=== PATIENT | female | born 1975 | race African-American/Black ===

== ENCOUNTER 2016-12-11 12:02 | Emergency (ER) | payer OTHER ==
[~2016-12-11] VITALS: Ht 160 cm; Wt 90.7 kg
[~2016-12-11 12:02] MED LIST: ALPRAZOLAM0.5 MG PO; Albuterol; CLOTRIMAZOLE VA21 GM VAGIN; CYCLOBENZAPRINE10 MG ORAL; FLUCONAZOLE100 MG ORAL; FLUCONAZOLE150 MG ORAL; HYDROCODON-ACE1 EA16 ORAL; IBUPROFEN600 MG ORAL; IBUPROFEN800 MG ORAL; NAPROSYN500 M1 ORAL; NKM; NORCO 5-325 TA1 EACH ORAL; NORCO 5-325 TA1 EACH PO; PREDNISONE50 MG ORAL; ROBAXIN-750750 MG PO; XANAX0.5 MG ORAL; flovent
[2016-12-11 12:29] VITALS: BP 136/84
--- NOTE | 2016-12-11 12:39 | Emergency Room Report ---
History of Present Illness General Chief Complaint: Vaginal Source: Patient Present Illness HPI The patient is a 41-year-old female presenting with lower back pain and vaginal discharge. She states that she has a history of sciatica and has had lower back pain for the past month. Pain radiates down the right leg. Worse with movement. This is described as an 8/10 sharp sensation. She is also complaining of a thick white vaginal discharge which started 3 days prior. She also admits to itching and pain to the vaginal area. Described as 7 /10 dull ache and does not radiate. 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 ,HYATIAL HERNIA , GALLSTONES Review of Systems All Other Systems: negative except mentioned in HPI Physical Exam Vital Signs Date Time Temp Pulse Resp B/P Pulse Ox O2 Delivery O2 Flow Rate FiO2 12/11/16 12:21 98.1 76 18 136/84 100 Room Air Sp02 EP Interpretation: reviewed, normal General Appearance: no apparent distress, alert, GCS 15, non-toxic Head: normocephalic, atraumatic Eyes: bilateral eye PERRL, bilateral eye normal inspection ENT: hearing grossly normal, normal pharynx, no angioedema, normal voice Neck: full range of motion, supple/symm/no masses Gastrointestinal: normal bowel sounds, non tender, soft, non-distended, no guarding, no rebound Genitourinary: normal inspection, no CVA tenderness Musculoskeletal: back normal, gait/station normal, normal range of motion, tender - TTP over the R lumbar paraspinal muscles Neurologic: alert, oriented x3, responsive, motor strength/tone normal, sensory intact, speech normal Psychiatric: judgement/insight normal, memory normal, mood/affect normal, no suicidal/homicidal ideation Skin: normal color, no rash, warm/dry, well hydrated Medical Decision Making PA Attestation Dr. Green is my supervising physician. Patient management was discussed with my supervising physician Diagnostic Impression: Primary Impression: UTI (urinary tract infection) Qualified Codes: N39.0 - Urinary tract infection, site not specified Additional Impression: Yeast infection ER Course The patient is a 41-year-old female presenting with sciatica and vaginal discharge Ddx considered include but not limited to lumbar strain, degenerative disease, epidural abscess, cauda equina, pyelonephritis, UTI, STD, vaginal candidiasis, BV, among others PE: afebrile. NAD Abdomen is soft and nontender. There is tenderness to palpation over the right lumbar paraspinal muscles. No midline tenderness. Normal gait. Urinalysis: shows bacteria with WBCs She is given Motrin and Robaxin for pain She is treated with Diflucan in the ER and will be SC'ed home with prescription for keflex and pain medication Laboratory Tests Test 12/11/16 12:23 Urine Color Pale yellow Urine Appearance Slightly cloudy Urine pH 5 (4.5-8.0) Urine Specific [place] 1.020 (1.005-1.035) Urine Protein Negative (NEGATIVE) Urine Glucose (UA) Negative (NEGATIVE) Urine Ketones Negative (NEGATIVE) Urine Occult Blood 4+ (NEGATIVE) H Urine Nitrite Negative (NEGATIVE) Urine Bilirubin Negative (NEGATIVE) Urine Urobilinogen Normal MG/DL (0.0-1.0) Urine Leukocyte Esterase 3+ (NEGATIVE) H Urine RBC 2-4 /HPF (0 - 2) H Urine WBC 5-10 /HPF (0 - 2) H Urine Squamous Epithelial Cells Moderate /LPF (NONE/OCC) H Urine Bacteria Moderate /HPF (NONE) H Urine HCG, Qualitative Negative Lab Results Impression UA: + bacteria and WBCs Last Vital Signs Date Time Temp Pulse Resp B/P Pulse Ox O2 Delivery O2 Flow Rate FiO2 12/11/16 12:29 98.1 76 18 136/84 100 Room Air Status: improved Disposition: HOME, SELF-CARE Condition: Improved Scripts Nitrofurantoin Monohyd/M-Cryst* (MACROBID 100 MG*) 100 Mg Capsule 100 MG ORAL EVERY 12 HOURS, #14 CAP Prov: TERZIAN,EDIE P.A. 12/11/16 Methocarbamol* (ROBAXIN-750*) 750 Mg Tablet 750 MG PO TID, #21 TAB 0 Refills Prov: TERZIAN,EDIE P.A. 12/11/16 Ibuprofen* (MOTRIN*) 600 Mg Tablet 600 MG ORAL Q8H Y for For Pain, #30 TAB 0 Refills Prov: EDIE KILLIAN 12/11/16 EDIE KILLIAN Dec 11, 2016 12:39
[2016-12-11] MEDS ORDERED: Methocarbamol 750mg tab ORAL ONE (12:45)
[2016-12-11 12:48] LABS: APPEARANCE,URINE SLIGHTLY CLOUDY; KETONES,URINE NEGATIVE (NEGATIVE); LEUKOCYTE ESTERASE ,URINE 3+ (NEGATIVE); NITRITE,URINE NEGATIVE (NEGATIVE); PH,URINE 5 (4.5-8.0); PROTEIN,URINE NEGATIVE (NEGATIVE); UROBILINOGEN,URINE NORMAL MG/DL (0.0-1.0)
[2016-12-11 12:59] LABS: BACTERIA,URINE MODERATE /HPF; SQUAMOUS EPITHELIAL CELL,UR MODERATE /LPF (NONE/OCC)
[2016-12-11] MEDS ORDERED: Fluconazole 100mg tab ORAL ONE (13:15)
[2016-12-11] MEDS ORDERED: IBUPROFEN600 MG ORAL (13:19)
[2016-12-11] MEDS ORDERED: NITROFURANTOIN100 M2 ORAL (13:19)
[2016-12-11] MEDS ORDERED: ROBAXIN-750750 MG PO (13:19)
[2016-12-11 13:27] VITALS: BP 136/84
== END 2016-12-11 13:27 | disposition home or self-care (01) ==
LOC: EMR 12:20
DX: N39.0 Urinary tract infection, site not specified (principal); B37.9 Candidiasis, unspecified; M54.30 Sciatica, unspecified side
CPT/HCPCS: 81003; 81025; 87086; 99284

== ENCOUNTER 2017-01-24 09:30 | Emergency (ER) | payer MEDICAID, OTHER ==
[~2017-01-24] VITALS: Ht 160 cm; Wt 90.7 kg
[~2017-01-24 09:30] MED LIST changes: +NITROFURANTOIN100 M2 ORAL
[2017-01-24] MEDS ORDERED: ALBUTEROL SULF8.5 GM INH (09:40)
[2017-01-24 09:44] VITALS: BP 118/74
[2017-01-24] MEDS ORDERED: Fluconazole 100mg tab ORAL ONE (10:00)
[2017-01-24] MEDS ORDERED: BENADRYL ALLERG25 M1 PO (10:08)
[2017-01-24 10:09] LABS: APPEARANCE,URINE CLEAR; KETONES,URINE NEGATIVE (NEGATIVE); LEUKOCYTE ESTERASE ,URINE 2+ (NEGATIVE); NITRITE,URINE NEGATIVE (NEGATIVE); PH,URINE 6 (4.5-8.0); PROTEIN,URINE NEGATIVE (NEGATIVE); UROBILINOGEN,URINE NORMAL MG/DL (0.0-1.0)
[2017-01-24 10:13] LABS: BACTERIA,URINE OCCASIONAL /HPF; RBC,URINE 0-2 /HPF (0 - 2); SQUAMOUS EPITHELIAL CELL,UR OCCASIONAL /LPF (NONE/OCC); WBC,URINE 0-2 /HPF (0 - 2)
[2017-01-24 10:29] VITALS: BP 118/74
--- NOTE | 2017-01-24 10:29 | Emergency Room Report ---
History of Present Illness General Chief Complaint: Female Urogenital Problems Source: Patient Present Illness HPI 41-year-old female presenting with vaginal itching for 3 days. Patient states minimal white vaginal discharge. Patient states that vaginal itching started about 3 days ago when she started using a new soap that contained honey. States that she had a UTI and a yeast infection a few weeks ago and completed treatment. Patient states that she is sexually active with one female partner, had been tested for STDs 1 month ago which was negative Denies any fever chills nausea vomiting abdominal pain dysuria or hematuria Allergies: Coded Allergies: No Known Allergies (Unverified , 04/26/13) Patient History Past Medical History: see triage record Past Surgical History: none Pertinent Family History: none Last Menstrual Period: Three weeks ago Now: No Reviewed Nursing Documentation: PMH: Agreed, PSxH: Agreed Nursing Documentation-PMH Hx Asthma: Yes Review of Systems All Other Systems: negative except mentioned in HPI Physical Exam Vital Signs Date Time Temp Pulse Resp B/P (MAP) Pulse Ox O2 Delivery O2 Flow Rate FiO2 01/24/17 09:35 97.9 93 16 114/78 100 Room Air Sp02 EP Interpretation: reviewed, normal General Appearance: normal inspection, well appearing, no apparent distress, alert, GCS 15, non-toxic Head: normocephalic, atraumatic Eyes: bilateral eye normal inspection, bilateral eye PERRL, bilateral eye EOMI ENT: normal ENT inspection, normal pharynx, normal voice, moist mucus membranes Neck: normal inspection, full range of motion, supple Respiratory: normal inspection, lungs clear, normal breath sounds, no respiratory distress, no retraction, no wheezing, speaking full sentences, chest symmetrical Cardiovascular #1: normal inspection, regular rate, rhythm, no edema, normal capillary refill Cardiovascular #2: 2+ radial (R), 2+ radial (L) Gastrointestinal: normal inspection, non tender, soft, non-distended, no guarding Genitourinary: other - Bilateral vaginal labia appears erythematous, irritated , no vesicles, white thick vaginal discharge Musculoskeletal: normal inspection, back normal, normal range of motion, non- tender Neurologic: normal inspection, alert, oriented x3, responsive, motor strength/ tone normal, sensory intact, normal gait, speech normal Psychiatric: normal inspection, judgement/insight normal, memory normal Skin: normal inspection, normal color, no rash, warm/dry, well hydrated, normal turgor Medical Decision Making Diagnostic Impression: Primary Impression: Yeast infection ER Course 41-year-old female with vaginal itching for 3 days DDX: Likely yeast infection Rule out UTI Plan: UA, will treat for yeast infection ER course: Patient has remained stable during ED stay. Disposition: Patient is to be discharged to home. Prescriptions given are Benadryl Patient is instructed to follow up with their primary care doctor within 5 days. Patient is instructed to follow up with [facility] within 3 days. Strict return precautions discussed with patient such as fever, chills, worsening/severe pain, nausea, vomiting, which may indicate severe illness. Patient verbalizes understanding and agrees with plan. Please note that this Emergency Department Report was dictated using [employer] technology software, occasionally this can lead to erroneous entry secondary to interpretation by the dictation equipment Laboratory Tests Test 01/24/17 09:44 01/24/17 09:45 Urine Color Pale yellow Urine Appearance Clear Urine pH 6 (4.5-8.0) Urine Specific [place] 1.010 (1.005-1.035) Urine Protein Negative (NEGATIVE) Urine Glucose (UA) Negative (NEGATIVE) Urine Ketones Negative (NEGATIVE) Urine Occult Blood Negative (NEGATIVE) Urine Nitrite Negative (NEGATIVE) Urine Bilirubin Negative (NEGATIVE) Urine Urobilinogen Normal MG/DL (0.0-1.0) Urine Leukocyte Esterase 2+ (NEGATIVE) H Urine RBC 0-2 /HPF (0 - 2) Urine WBC 0-2 /HPF (0 - 2) Urine Squamous Epithelial Cells Occasional /LPF Urine Bacteria Occasional /HPF (NONE) Urine HCG, Qualitative Negative Chlamydia trachomatis RNA Pending Neisseria gonorrhoeae RNA Pending Last Vital Signs Date Time Temp Pulse Resp B/P (MAP) Pulse Ox O2 Delivery O2 Flow Rate FiO2 01/24/17 09:44 97.8 91 15 118/74 100 Room Air Disposition: HOME, SELF-CARE Condition: Improved Scripts Diphenhydramine Hcl (BENADRYL ALLERGY) 25 Mg Tablet 25 MG PO Q6H for 7 Days, #28 TAB 0 Refills Prov: Clarisa Duncan M.D. 01/24/17 Referrals: NON PHYSICIAN (PCP) Patient Instructions: Vaginal Yeast Infection, Adult Clarisa Duncan M.D. Jan 24, 2017 10:29
== END 2017-01-24 10:31 | disposition home or self-care (01) ==
LOC: EMR 10:12
DX: B37.9 Candidiasis, unspecified (principal)
CPT/HCPCS: 81003; 81025; 87491; 87590; 99284

== ENCOUNTER 2017-02-17 20:22 | Emergency (ER) | payer MEDICAID ==
[~2017-02-17] VITALS: Ht 160 cm; Wt 88.5 kg
[~2017-02-17 20:22] MED LIST changes: +ALBUTEROL SULF8.5 GM INH; +BENADRYL ALLERG25 M1 PO
[2017-02-17] MEDS ORDERED: NKM (20:41)
[2017-02-17 21:20] VITALS: BP 142/80
[2017-02-17] MEDS ORDERED: Ketorolac 60mg Inj IM ONE (21:30)
[2017-02-17 21:58] LABS: KETONES,URINE 1+ (NEGATIVE); LEUKOCYTE ESTERASE ,URINE 1+ (NEGATIVE); NITRITE,URINE NEGATIVE (NEGATIVE); PH,URINE 5 (4.5-8.0); PROTEIN,URINE NEGATIVE (NEGATIVE); UROBILINOGEN,URINE 1 MG/DL (0.0-1.0)
[2017-02-17 22:09] LABS: APPEARANCE,URINE CLEAR
[2017-02-17 22:16] LABS: BACTERIA,URINE FEW /HPF; RBC,URINE 0-2 /HPF (0 - 2); SQUAMOUS EPITHELIAL CELL,UR FEW /LPF (NONE/OCC)
[2017-02-17] MEDS ORDERED: METROGEL-VAGINA70 G1 VAGIN (22:40)
[2017-02-17] MEDS ORDERED: BENADRYL25 MG ORAL (22:40)
[2017-02-17 23:01] VITALS: BP 128/72
[2017-02-17] MEDS ORDERED: IBUPROFEN600 MG ORAL (23:07)
[2017-02-17 23:13] VITALS: BP 128/72
--- NOTE | 2017-02-20 06:41 | Emergency Room Report ---
History of Present Illness General Chief Complaint: Abdominal Pain Source: Patient Present Illness HPI Patient present with complaints of suprapubic discomfort Possibly bladder infection patient also reports that she has another yeast infection with increased itching in the vaginal area Denies any pain Denies any fevers denies any chest pressures of breath Denies any urinary frequency however she had some dysuria Patient reports that she's not sexually active at this time Denies any flank pain Allergies: Coded Allergies: No Known Allergies (Unverified , 04/26/13) Patient History Past Medical History: see triage record Pertinent Family History: none Last Menstrual Period: 2 weeks ago : 2 Reviewed Nursing Documentation: PMH: Agreed, PSxH: Agreed Nursing Documentation-PMH Hx Asthma: Yes Review of Systems All Other Systems: negative except mentioned in HPI Physical Exam Vital Signs Date Time Temp Pulse Resp B/P (MAP) Pulse Ox O2 Delivery O2 Flow Rate FiO2 02/17/17 20:37 98.2 80 18 142/80 98 Room Air Sp02 EP Interpretation: reviewed, normal General Appearance: well appearing, no apparent distress Head: normocephalic, atraumatic Eyes: bilateral eye PERRL, bilateral eye EOMI ENT: hearing grossly normal, normal pharynx, TMs + canals normal, uvula midline Neck: full range of motion, supple, no meningismus, no bony tend Respiratory: lungs clear, normal breath sounds, no rhonchi, no respiratory distress, no retraction, no accessory muscle use Cardiovascular #1: normal peripheral pulses, regular rate, rhythm, no edema, no gallop, no JVD, no murmur Gastrointestinal: normal bowel sounds, non tender, soft, no mass, no organomegaly, non-distended, no guarding, no hernia, no pulsatile mass, no rebound Genitourinary: no CVA tenderness Musculoskeletal: normal inspection Neurologic: oriented x3, responsive, asbestos worker III-XII nml as tested, motor strength/ tone normal, sensory intact Psychiatric: mood/affect normal Skin: normal color, no rash, warm/dry, palpation normal Lymphatic: normal inspection, no adenopathy Medical Decision Making Diagnostic Impression: Primary Impression: vaginitis ER Course With the patient's history and examination, multiple differentials considered, including but not limited to , ectopic , ovarian torsion, gastritis, cholecystitis, pancreatitis, appendicitis Given the clinical history however on the abdominal examination My differential for appendicitis is low Patient's urine sample is essentially negative At this time patient was treated for clinical yeast infection and requires close followup with gynecology Labs Test 02/17/17 21:22 Urine Color Yellow Urine Appearance Clear Urine pH 5 (4.5-8.0) Urine Specific [place] 1.025 (1.005-1.035) Urine Protein Negative (NEGATIVE) Urine Glucose (UA) Negative (NEGATIVE) Urine Ketones 1+ (NEGATIVE) Urine Occult Blood Negative (NEGATIVE) Urine Nitrite Negative (NEGATIVE) Urine Bilirubin Negative (NEGATIVE) Urine Urobilinogen 1 MG/DL (0.0-1.0) Urine Leukocyte Esterase 1+ (NEGATIVE) Urine RBC 0-2 /HPF (0 - 2) Urine WBC 2-4 /HPF (0 - 2) Urine Squamous Epithelial Cells Few /LPF (NONE/OCC) Urine Bacteria Few /HPF (NONE) Urine HCG, Qualitative Negative Last Vital Signs Date Time Temp Pulse Resp B/P (MAP) Pulse Ox O2 Delivery O2 Flow Rate FiO2 02/17/17 23:13 98.2 60 14 128/72 100 Room Air Status: improved Disposition: HOME, SELF-CARE Condition: Improved Scripts Ibuprofen* (MOTRIN*) 600 Mg Tablet 600 MG ORAL Q8H Y for For Pain, #30 TAB 0 Refills Prov: JENNIFER RIVER D.O. 02/17/17 Diphenhydramine Hcl* (BENADRYL*) 25 Mg Capsule 25 MG ORAL Q6H Y for Itching for 5 Days, CAP Prov: JENNIFER RIVER D.O. 02/17/17 Metronidazole* (METROGEL-VAGINAL*) 70 Gm Gel.w.appl 1 APPL VAGIN EVERY 12 HOURS for 7 Days, #70 GM Prov: JENNIFER RIVER D.O. 02/17/17 Referrals: NON PHYSICIAN (PCP) Patient Instructions: Vaginitis, [id number] Additional Instructions: Patient is provided with the discharge instructions notified to follow up with primary doctor in the next 2-3 days otherwise return to the er with any worsening symptoms. Please note that this report is being documented using [employer] technology. This can lead to erroneous entry secondary to incorrect interpretation by the dictating instrument. JENNIFER RIVER D.O. Feb 20, 2017 06:41
== END 2017-02-17 23:13 | disposition home or self-care (01) ==
LOC: EMR 20:59
DX: N76.0 Acute vaginitis (principal); R10.9 Unspecified abdominal pain
CPT/HCPCS: 81003; 81025; 96372; 99284

== ENCOUNTER 2017-06-28 09:56 | Emergency (ER) | payer MEDICAID ==
[~2017-06-28] VITALS: Ht 160 cm; Wt 91.2 kg
[~2017-06-28 09:56] MED LIST changes: +BENADRYL25 MG ORAL; +METROGEL-VAGINA70 G1 VAGIN
[2017-06-28] MEDS ORDERED: ROBAXIN-750750 MG PO (10:36)
[2017-06-28 10:41] LABS: APPEARANCE,URINE TURBID; BILIRUBIN, URINE NEGATIVE (NEGATIVE); COLOR,URINE PALE YELLOW; GLUCOSE, URINE (UA) NEGATIVE (NEGATIVE); KETONES,URINE NEGATIVE (NEGATIVE); LEUKOCYTE ESTERASE ,URINE 2+ (NEGATIVE); NITRITE,URINE NEGATIVE (NEGATIVE); PH,URINE 8 (4.5-8.0); PROTEIN,URINE NEGATIVE (NEGATIVE); UROBILINOGEN,URINE NORMAL MG/DL (0.0-1.0)
[2017-06-28] MEDS ORDERED: Methocarbamol 750mg tab ORAL ONE (10:45)
[2017-06-28] MEDS ORDERED: Fluconazole 100mg tab ORAL ONE (10:45)
[2017-06-28] MEDS ORDERED: Ketorolac 30mg Inj IM ONE (10:45)
[2017-06-28 10:53] VITALS: BP 147/99
--- NOTE | 2017-06-28 13:04 | Emergency Room Report ---
History of Present Illness General Chief Complaint: Vaginal Source: Patient Present Illness HPI 41-year-old female, presenting with one week of thick vaginal itching discharge. States that it has been uncomfortable. Denies any urinary frequency or urgency. No risk of having any STDs Also states that she has had chronic back pain, right side radiating down leg. States that she takes Flexeril to go to work sometimes No urinary retention, no fever no chills Allergies: Coded Allergies: No Known Allergies (Unverified , 04/26/13) Patient History Past Medical History: see triage record Past Surgical History: none Pertinent Family History: none Last Menstrual Period: 06/25/17 Reviewed Nursing Documentation: PMH: Agreed, PSxH: Agreed Nursing Documentation-PMH Hx Asthma: Yes Review of Systems All Other Systems: negative except mentioned in HPI Physical Exam Vital Signs Date Time Temp Pulse Resp B/P (MAP) Pulse Ox O2 Delivery O2 Flow Rate FiO2 06/28/17 09:59 97.7 90 19 147/99 99 Room Air 97.7 Sp02 EP Interpretation: reviewed, normal General Appearance: normal inspection, well appearing, no apparent distress, alert, GCS 15, non-toxic Head: normocephalic, atraumatic Eyes: bilateral eye normal inspection, bilateral eye PERRL, bilateral eye EOMI ENT: normal ENT inspection, normal pharynx, normal voice, moist mucus membranes Neck: normal inspection, full range of motion, supple Respiratory: normal inspection, lungs clear, normal breath sounds, no respiratory distress, no retraction, no wheezing, speaking full sentences, chest symmetrical Cardiovascular #1: normal inspection, regular rate, rhythm, no edema, normal capillary refill Cardiovascular #2: 2+ radial (R), 2+ radial (L) Gastrointestinal: normal inspection, non tender, soft, non-distended, no guarding Genitourinary: other - Labia majora, red, white vaginal discharge, thick Musculoskeletal: normal inspection, back normal, normal range of motion, non- tender Neurologic: normal inspection, alert, oriented x3, responsive, motor strength/ tone normal, sensory intact, normal gait, speech normal Psychiatric: normal inspection, judgement/insight normal, memory normal Skin: normal inspection, normal color, no rash, warm/dry, well hydrated, normal turgor Medical Decision Making Diagnostic Impression: Primary Impression: Yeast infection Additional Impression: back pain with sciatica ER Course 41-year-old female with vaginal discharge, also with chronic back pain DDX: Vaginal discharge likely yeast infection, rule out UTI Chronic back pain likely sciatica, musculoskeletal back pain. No neurological signs or symptoms to suggest cord compression, cauda equina, epidural abscess Plan: UA urine culture, pain control ER course: Patient has remained stable during ED stay. Feels much better Given fluconazole Disposition: Patient is to be discharged to home. Prescriptions given are Robaxin Patient is instructed to follow up with their primary care doctor within 5 days. Strict return precautions discussed with patient such as fever, chills, worsening/severe pain, nausea, vomiting, which may indicate severe illness. Patient verbalizes understanding and agrees with plan. Please note that this Emergency Department Report was dictated using [employer] technology software, occasionally this can lead to erroneous entry secondary to interpretation by the dictation equipment Last Vital Signs Date Time Temp Pulse Resp B/P (MAP) Pulse Ox O2 Delivery O2 Flow Rate FiO2 06/28/17 10:53 207.9 19 147/99 99 Room Air 207.9 06/28/17 09:59 90 Disposition: HOME, SELF-CARE Condition: Improved Scripts Methocarbamol* (ROBAXIN-750*) 750 Mg Tablet 750 MG PO QID, #28 TAB 0 Refills Prov: Clarisa Duncan M.D. 06/28/17 Referrals: NON PHYSICIAN (PCP) Patient Instructions: Vaginal Yeast Infection, Adult, Back Pain, Adult, Easy-to -Read Additional Instructions: Please followup with your doctor in one week. You may need physical therapy Clarisa Duncan M.D. Jun 28, 2017 13:04
== END 2017-06-28 10:53 | disposition home or self-care (01) ==
LOC: EMR 10:15
DX: B37.3 Candidiasis of vulva and vagina (principal); M54.9 Dorsalgia, unspecified; M54.31 Sciatica, right side; G89.29 Other chronic pain; J45.909 Unspecified asthma, uncomplicated
CPT/HCPCS: 81003; 81025; 87086; 99283; J1885

== ENCOUNTER 2018-11-10 15:21 | Emergency (ER) | payer MEDICAID ==
[~2018-11-10] VITALS: Ht 161.3 cm; Wt 83.5 kg
--- NOTE | 2018-11-10 15:30 | NUR ---
ED Nurse Note: Pt has been experiencing itchiness and white discharge x 1 week. AOx4, VSS carolyne. Will cont to monitor.
[2018-11-10 15:31] VITALS: BP 149/95
--- NOTE | 2018-11-10 16:05 | NUR ---
ED Nurse Note: Pt stated she cannot give urine sample at this time but will try again after drinking water.
--- NOTE | 2018-11-10 16:09 | Emergency Room Report ---
History of Present Illness General Chief Complaint: Vaginal Source: Medical Record Present Illness HPI 42-year-old female with no symptom past medical history complaining of 1 week of white clumpy vaginal discharge as well as vaginal pruritus. Patient also complains of minimal burning burning sensation post scratching her vaginal area. Denies dysuria urinary frequency. Patient is not sexually active. Last menstrual period was 2 weeks ago regular. Denies fever and chills, nausea vomiting, abdominal pain, chest pain, shortness of breath, and all other associated symptoms. Has not been taking any medication for symptom relief. Allergies: Coded Allergies: No Known Allergies (Unverified , 04/26/13) Patient History Past Medical History: see triage record Past Surgical History: unable to obtain Pertinent Family History: none Last Menstrual Period: 11/05/18 Now: No Immunizations: UTD Reviewed Nursing Documentation: PMH: Agreed; PSxH: Agreed Nursing Documentation-PMH Past Medical History: No History, Except For Hx Asthma: Yes Review of Systems All Other Systems: negative except mentioned in HPI Physical Exam Vital Signs Date Time Temp Pulse Resp B/P (MAP) Pulse Ox O2 Delivery O2 Flow Rate FiO2 11/10/18 15:26 97.9 82 18 157/96 (116) 100 Room Air Sp02 EP Interpretation: reviewed, normal General Appearance: normal inspection, well appearing Head: normocephalic, atraumatic Eyes: bilateral eye normal inspection, bilateral eye PERRL ENT: normal ENT inspection, hearing grossly normal, no angioedema Neck: normal inspection, full range of motion, supple Respiratory: normal inspection, chest non-tender, lungs clear, normal breath sounds, no rhonchi Cardiovascular #1: normal inspection, normal peripheral pulses, regular rate, rhythm, no gallop, no murmur Gastrointestinal: normal inspection, non tender, soft Genitourinary: no CVA tenderness, other - No vaginal trauma, no vaginal erythema Musculoskeletal: normal inspection, back normal Neurologic: normal inspection, alert, oriented x3 Psychiatric: normal inspection, judgement/insight normal Skin: no rash Lymphatic: normal inspection, no adenopathy Medical Decision Making PA Attestation All my diagnosis and treatment plans were reviewed ad discussed with my supervising physician Dr. Crowley Diagnostic Impression: Primary Impression: Vaginitis ER Course 42-year-old female with no symptom past medical history complaining of 1 week of white clumpy vaginal discharge as well as vaginal pruritus. Patient also complains of minimal burning burning sensation post scratching her vaginal area. Denies dysuria urinary frequency. Patient is not sexually active. Last menstrual period was 2 weeks ago regular. Denies fever and chills, nausea vomiting, abdominal pain, chest pain, shortness of breath, and all other associated symptoms. Has not been taking any medication for symptom relief. Ddx considered but are not limited to: UTI, pylonephritis, urinary incontinence , prolapsed bladder, vaginitis Vital signs: are WNL, pt. is afebrile H&PE are most consistent with: Vaginitis ORDERS: UA, Diflucan, Lotrisone cream ED INTERVENTIONS: None required at this time. DISCHARGE: At this time pt. is stable for d/c to home. Will provide printed patient care instructions, and any necessary prescriptions. Care plan and follow up instructions have been discussed with the patient prior to discharge. Wear cotton only underwear follow-up with your primary care provider avoid wearing tight clothing avoid moist areas Last Vital Signs Date Time Temp Pulse Resp B/P (MAP) Pulse Ox O2 Delivery O2 Flow Rate FiO2 11/10/18 15:31 97.9 84 20 149/95 100 Room Air Disposition: HOME, SELF-CARE Condition: Stable Scripts Diphenhydramine HCl (Benadryl) 25 Mg Capsule 25 MG PO BID, #20 CAP Prov: Astrid Tse 11/10/18 Clotrimazole/Betamethasone Dip* (LOTRISONE CREAM*) 15 Gm Cream..g. 2 GM TP TWICE A DAY, #15 GM 0 Refills Prov: Astrid Tse 11/10/18 Fluconazole (FLUCONAZOLE) 100 Mg Tablet 100 MG ORAL DAILY for 2 Days, #2 TAB 0 Refills Prov: sAtrid Tse 11/10/18 Patient Instructions: Vaginitis, [id number] Astrid Tse Nov 10, 2018 16:09
[2018-11-10] MEDS ORDERED: LOTRISONE CREAM15 GM TP (16:11)
[2018-11-10] MEDS ORDERED: FLUCONAZOLE100 MG ORAL (16:11)
[2018-11-10] MEDS ORDERED: BENADRYL25 M3 PO (16:11)
[2018-11-10 16:17] VITALS: BP 149/95
--- NOTE | 2018-11-10 16:17 | NUR ---
ER DISCHARGE NOTE: Patient is cleared to be discharged per ERMD, pt is aox4, on room air, with stable vital signs. pt was given dc and prescription instructions, pt was able to verbalize understanding, pt id band removed. pt is able to ambulate with steady gait. pt took all belongings.
== END 2018-11-10 16:17 | disposition home or self-care (01) ==
LOC: EMR 16:04
DX: N76.0 Acute vaginitis (principal); J45.909 Unspecified asthma, uncomplicated
CPT/HCPCS: 99282

== ENCOUNTER 2019-06-13 13:59 | Emergency (ER) | payer MEDICAID ==
[~2019-06-13] VITALS: Ht 160 cm; Wt 76.7 kg
[~2019-06-13 13:59] MED LIST changes: +BENADRYL25 M3 PO; +LOTRISONE CREAM15 GM TP
--- NOTE | 2019-06-13 14:06 | NUR ---
ED Nurse Note: pt ambulated to ed c/o itching all over body starting 1 week ago. pt reports that it happens everytime she steps in her house. pt is restless and itching upper extremities. pt reports itching from the neck to upper thigh.
[2019-06-13 14:09] VITALS: BP 135/66
--- NOTE | 2019-06-13 14:09 | NUR ---
ED Nurse Note: pt states that hydrocortisone doesnt help.
[2019-06-13] MEDS ORDERED: LORATADINE10 M2 PO (14:18)
--- NOTE | 2019-06-13 14:18 | Emergency Room Report ---
History of Present Illness General Chief Complaint: Skin Rash/Abscess Source: Patient Present Illness HPI 43-year-old female presents with itching that comes and goes, alleviated with Benadryl no aggravating factors severity is moderate, intermittent patient has been dealing with this issue for years, she has seen multiple doctors no f/c Allergies: Coded Allergies: No Known Allergies (Unverified , 04/26/13) Patient History Past Medical History: see triage record Social History: Reports: smoking Last Menstrual Period: Jun 06, 2019 Now: No Reviewed Nursing Documentation: PMH: Agreed; PSxH: Agreed Nursing Documentation-PMH Past Medical History: No Stated History Hx Asthma: Yes Review of Systems All Other Systems: negative except mentioned in HPI Physical Exam Vital Signs Date Time Temp Pulse Resp B/P (MAP) Pulse Ox O2 Delivery O2 Flow Rate FiO2 06/13/19 14:01 97.9 86 18 135/66 (89) 100 Room Air General Appearance: well appearing, no apparent distress Head: normocephalic, atraumatic Eyes: bilateral eye PERRL, bilateral eye EOMI ENT: hearing grossly normal, normal voice Neck: full range of motion, supple Respiratory: no respiratory distress, speaking full sentences Neurologic: alert, normal gait Psychiatric: mood/affect normal Skin: other - Rash noted diffusely excoriation, papules, blanchable Medical Decision Making Diagnostic Impression: Primary Impression: Urticaria ER Course 43-year-old female presents with possible hives, possible urticaria Will provide loratadine Disposition home with return precautions follow-up with dermatology Last Vital Signs Date Time Temp Pulse Resp B/P (MAP) Pulse Ox O2 Delivery O2 Flow Rate FiO2 06/13/19 14:09 97.9 89 18 135/66 100 Room Air Disposition: HOME, SELF-CARE Condition: Stable Scripts Loratadine (LORATADINE) 10 Mg Tablet 10 MG PO DAILY, #30 TAB Prov: Pete Pro MD 06/13/19 Referrals: [facility] Chiara Pimentel [facility]. [facility] Patient Instructions: Hives, [id number] Additional Instructions: The patient was provided with discharge instructions, notified to follow-up with a primary care doctor and or specialist in the next 24-48 hours, and to return to the ED if they have worsening of their symptoms. Please note that this report is being documented using DRAGON technology. This can lead to erroneous entry secondary to incorrect interpretation by the dictating instrument. PLEASE FOLLOW-UP WITH DERMATOLOGY Pete Pro MD Jun 13, 2019 14:18
== END 2019-06-13 14:37 | disposition home or self-care (01) ==
LOC: EMR 14:14
DX: L50.9 Urticaria, unspecified (principal); J45.909 Unspecified asthma, uncomplicated; F17.200 Nicotine dependence, unspecified, uncomplicated
CPT/HCPCS: J8540; Z7502; 99282

== ENCOUNTER 2020-04-28 13:50 | Emergency (ER) | payer MEDICAID ==
[2019-06-13 14:22] VITALS: BP 133/71
[~2020-04-28 13:50] MED LIST changes: +LORATADINE10 M2 PO
--- NOTE | 2020-04-28 17:01 | Emergency Room Report ---
History of Present Illness General Chief Complaint: To Be Triaged Present Illness Allergies: Coded Allergies: No Known Allergies (Unverified , 04/26/13) Patient History Last Menstrual Period: Jun 06, 2019 Now: No Nursing Documentation-[facility] Hx Asthma: Yes Medical Decision Making Diagnostic Impression: Primary Impression: Patient left without being seen Status: unchanged Disposition: LEFT W/OUT BEING SEEN Condition: Unknown Referrals: [facility]ERR[facility] (PCP) Omer Laboy MD Apr 28, 2020 17:01
== END 2020-04-28 14:00 | disposition left against medical advice (07) ==
LOC: EMR 14:00
DX: M25.562 Pain in left knee (principal); Z53.21 Procedure and treatment not carried out due to patient leaving prior to being seen by health care provider